=== PATIENT | male | born 1930 | race Caucasian/White ===

== ENCOUNTER → 2017-05-06 | Outpatient (CLI) | payer MEDICARE ==
[~2017-05-06] MED LIST: CHOL10003 PO; CHOL400T12 PO; DILT120C9 PO; ESOM20CA PO; FAMO40TA61 PO; FURO20TA3 PO; MULT1CAP19 PO; POTA10TA12 PO; SPIR25TA3 PO
[2017-05-06 11:56] LABS: ALANINE AMINOTRANSFERASE 26 U/L (12-78); ALBUMIN 3.9 g/dL (3.4-5.0); ANION GAP 5 mmol/L (5-15); CALCIUM 9.2 mg/dL (8.5-10.1); CHLORIDE 103 mmol/L (98-107); CREATININE 1.12 mg/dL (0.7-1.3)
[2017-05-06 11:58] LABS: ALKALINE PHOSPHATASE 169 U/L (45-117); BILIRUBIN,TOTAL 0.8 mg/dL (0.2-1.0); TOTAL PROTEIN 7.7 g/dL (6.4-8.2)
[2017-05-06 12:04] LABS: MD YES; MEAN CORPUSCULAR HEMOGLOBIN 27.8 pg (27.5-34.5); MEAN CORPUSCULAR HGB CONC 32.4 g/dL (33.2-36.2); MEAN CORPUSCULAR VOLUME 85.6 fL (81-97); PLATELET COUNT 238 x10^3/uL (130-400); RED BLOOD COUNT 4.66 x10^6/uL (4.38-5.82); RED CELL DISTRIBUTION WIDTH 33.6 % (9.4-14.8)
[2017-05-06 12:49] LABS: BAND#(MANUAL) 0.05 x10^3/uL; BANDS%(MANUAL) 1 % (0-7); BASOS#(MANUAL) 0.05 x10^3/uL (0-0.1); BASOS% (MANUAL) 1 % (0-1); EOS#(MANUAL) 0.05 x10^3/uL (0.0-0.4); EOS% (MANUAL) 1 % (1-7); LYMPH#(MANUAL) 0.91 x10^3/uL (1-3.4); LYMPHS% (MANUAL) 19 % (22-44); MONOS#(MANUAL) 0.29 x10^3/uL (0.3-2.7); MONOS% (MANUAL) 6 % (2-9); SEG#(MANUAL) 3.46 x10^3/uL (1.8-6.8); SEGS% (MANUAL) 72 % (42-75)
[2017-05-06 12:50] LABS: ANISOCYTOSIS 1+
[2017-05-06 12:52] LABS: HYPOCHROMIA 1+; OVALOCYTES 1+
[2017-05-06 12:53] LABS: ECHINOCYTES 1+
[2017-05-06 12:55] LABS: <PLATELET ESTIMATE> ADEQUATE; <PLT MORPHOLOGY> NORMAL PLT MORPH
== END | disposition home or self-care (01) ==
LOC: STAR 10:35
PROVIDERS: ATTEND Internal Medicine Gastroenterology
DX: Z01.818 Encounter for other preprocedural examination (principal); I48.91 Unspecified atrial fibrillation; D50.9 Iron deficiency anemia, unspecified
CPT/HCPCS: 36415; 80053; 85025; 93005

== ENCOUNTER 2017-05-11 08:23 | Day surgery (SDC) | payer MEDICARE ==
[~2017-05-11] VITALS: Ht 182.9 cm; Wt 75.7 kg
[2017-05-11] MEDS ORDERED: LACTATED RINGERS 1,000 ML IV SCH (09:33)
[2017-05-11 09:37] VITALS: BP 124/79
[2017-05-11] MEDS ORDERED: SUCCINYLCHOLINE 20 MG/ML, 10ML ONE (11:20)
[2017-05-11] MEDS ORDERED: MIDAZOLAM 1 MG/ML, 2ML ONE (11:20)
[2017-05-11] MEDS ORDERED: FENTANYL PF 100 MCG/2ML ONE (11:21)
[2017-05-11] MEDS ORDERED: LIDOCAINE-MPF 2% ,5ML ONE (11:22)
[2017-05-11] MEDS ORDERED: PROPOFOL 10 MG/ML, 20ML ONE (11:22)
[2017-05-11] MEDS ORDERED: DEXAMETHASONE 4 MG/ML, 1ML ONE ×2 (11:48)
[2017-05-11] MEDS ORDERED: ONDANSETRON 2MG/ML, 2ML ONE ×2 (11:48)
[2017-05-11] MEDS ORDERED: HYDROmorphone 1 MG/ML, 1ML IV PRN (12:30)
[2017-05-11] MEDS ORDERED: OXYcodone 5 MG/5 ML ORAL.SOL UDC PO PRN (12:30)
[2017-05-11] MEDS ORDERED: LABETALOL 5MG/ML, 20ML IV PRN (12:30)
[2017-05-11] MEDS ORDERED: MEPERIDINE/PF 25MG/0.5ML IVPush PRN (12:30)
[2017-05-11] MEDS ORDERED: PROMETHAZINE 12.5 MG SUPP PR PRN (12:30)
[2017-05-11] MEDS ORDERED: ONDANSETRON 2MG/ML, 2ML IVPush PRN (12:30)
[2017-05-11] MEDS ORDERED: FENTANYL PF 100 MCG/2ML IV PRN (12:30)
[2017-05-11] MEDS ORDERED: ACETAMINOPHEN 325 MG TABLET PO PRN (12:30)
[2017-05-11] MEDS ORDERED: hydrALAzine 20 MG/ML, 1ML IV PRN (12:30)
== END 2017-05-11 14:15 ==
LOC: OUT 08:23
PROVIDERS: ATTEND Internal Medicine Gastroenterology
DX: K29.70 Gastritis, unspecified, without bleeding (principal); K64.8 Other hemorrhoids; K63.5 Polyp of colon; G47.33 Obstructive sleep apnea (adult) (pediatric); K20.9 Esophagitis, unspecified
CPT/HCPCS: 43239; 45385; 88305; J0330; J1100; J2250; J2405; J2704; J3010; J3490; J7120